=== PATIENT | female | born 1930 | race Two or more races ===

== ENCOUNTER 2019-01-16 09:26 | Emergency (ER) | payer OTHER ==
[~2019-01-16] VITALS: Ht 154.9 cm; Wt 62.6 kg
[~2019-01-16 09:26] MED LIST: BACTRIM DS TABL1 TAB PO; COZAAR25 MG; DULCOLAX10 MG RC; MICRONASE1.25 MG; SIMVASTATIN5 MG; TOPROL XL50 MG; TRISPEC DMX PED30 ML; ZANTAC300 MG
[2019-01-16] MEDS ORDERED: LOSARTAN POTAS100 MG (09:41)
[2019-01-16] MEDS ORDERED: SIMVASTATIN40 MG (09:42)
[2019-01-16] MEDS ORDERED: ZOLOFT50 MG (09:43)
[2019-01-16] MEDS ORDERED: PLAVIX75 MG (09:44)
== END 2019-01-16 12:44 | disposition home or self-care (01) ==
LOC: ER 09:26
DX: K27.9 Peptic ulcer, site unspecified, unspecified as acute or chronic, without hemorrhage or perforation (principal)

== ENCOUNTER 2019-04-02 13:01 | Emergency (ER) | payer OTHER ==
[~2019-04-02] VITALS: Ht 152.4 cm; Wt 62.6 kg
[~2019-04-02 13:01] MED LIST changes: +LOSARTAN POTAS100 MG; +PLAVIX75 MG; +SIMVASTATIN40 MG; +ZOLOFT50 MG
[2019-04-02] MEDS ORDERED: GLUMETZA500 MG (13:25)
[2019-04-02] MEDS ORDERED: ARICEPT5 MG (13:27)
== END 2019-04-02 18:18 | disposition home or self-care (01) ==
LOC: ER 13:01
DX: E11.69 Type 2 diabetes mellitus with other specified complication (principal); N39.0 Urinary tract infection, site not specified

== ENCOUNTER 2019-06-30 17:29 | Emergency (ER) | payer OTHER ==
[~2019-06-30] VITALS: Ht 165.1 cm; Wt 59.0 kg
[~2019-06-30 17:29] MED LIST changes: +ARICEPT5 MG; +GLUMETZA500 MG
== END 2019-06-30 21:11 | disposition home or self-care (01) ==
LOC: ER 17:29
DX: R42 Dizziness and giddiness (principal)